=== PATIENT | female | born 1960 | race Two or more races ===

== ENCOUNTER 2021-12-17 06:00 | Day surgery (SDC) | payer OTHER ==
[~2021-12-17] VITALS: Ht 157.5 cm; Wt 47.2 kg
[~2021-12-17 06:00] MED LIST: COZAAR100 MG PO; CRESTOR5 MG PO; LATANOPROST 0.7.5 ML OP
== END 2021-12-17 15:35 | disposition home or self-care (01) ==
LOC: CIR.AMB 06:00
PROVIDERS: ATTEND Colon & Rectal Surgery
DX: K64.2 Third degree hemorrhoids (principal); K64.4 Residual hemorrhoidal skin tags; Z20.822 Contact with and (suspected) exposure to COVID-19; I10 Essential (primary) hypertension; M79.7 Fibromyalgia; G43.909 Migraine, unspecified, not intractable, without status migrainosus; K21.9 Gastro-esophageal reflux disease without esophagitis